=== PATIENT | male | born 1985 | race Caucasian/White ===

== ENCOUNTER 2025-04-02 18:47 | Emergency (ER) | payer SELFPAY ==
--- OUTSIDE RECORDS SUMMARY | 2023-10-30 11:30 | XMS_ITS ---
Author Organization [facility] Am[facility] joseph Billing Info Address [address] [place] [address] Care Team Providers Care Medical Fee Clerk Name Role Phone BLOA GRANT Primary Care Provider REASON FOR VISIT physical exam Encounters Encounter Location Date Provider Diagnosis [id number] [facility] [address] [place], [place] [id number] 10/30/2023 BOLA GRANT Plan Of Treatment No Information Progress Notes * Lars BOWMANOB:1985 (39 yo M)Acc No.[id number]:10/30/2023 PROGRESS NOTE Patient: Casey RODRIGUEZ Provider: Vernon GRANT APRN :1985 A ge:37 Y S ex:Male Date:10/30/2023 C HN#:[id number] Address:[address] , [facility] Subjective: * Chief Complaints: * 1 . Physical exam. * Medical History: Objective: * Vitals: Assessment: Plan: * Treatment: * Care Plan Details* * This progress note has not b een verified nor is it considered complete until locked and signed by the provider. Sign off status: Pending * Provider: Vernon GRANT APRN Date: 10/30/2023 Generated for Derrick proctor/Angelita/eTeitansmitting on: 04/02/2025 07:35 PM EDT
--- OUTSIDE RECORDS SUMMARY | 2023-11-19 11:00 | XMS_ITS ---
Author Organization [facility] Amirk joseph Billing Info Address [address] [place] [address] Care Team Providers Care Rig Welder Name Role Phone BOLA GRANT Primary Care Provider Allergies No Known Allergies REASON FOR VISIT physical exam Medications Medication SIG (Take, Route, Frequency, Duration) Notes Start Date End Date Status Atorvastatin Calcium 10 MG 1 tablet Oral ly Once a day for 90 day(s) Active Fluticasone Propionate 50 MCG/ACT 1 spray in each nostril Nasally Once a day for 30 day(s) 10/07/2018 Active Amitriptyline HCl 10 MG 1 tablet at bedt yoandy Orally Once a day for 30 day(s) Active Nexium 20 MG 1 capsule Orally Daily Active Ketoconazole 2 % as directed External ly Once a day for 3 days, then 3 times a week for 1 month 10/22/2018 Active Tadalafil 10 MG 1 tablet as needed Orally Once a day Active Social History Tobacco Use: Social History Observation Description Date Details (start date - stop date) Former Smoker NA - NA Tobacco Status: Question Answer Notes Patient is a former smoker Vital Signs Height 62 in 11/19/2023 Weight 172 lbs 11/19/2023 BMI 31.46 kg/m2 11/19/2023 Blood pressure systolic 116 mm Hg 11/19/19 24 Blood pressure diastolic 72 mm Hg 024 Temperature 98.1 degrees Fahrenheit 11/19/19 24 Heart Rate 61 /min 11/19/2023 Oximetry 97 11/19/2023 Procedures Procedure Date Ordered Date Performed Result Body Sit e EAR WAX REMOVAL, IRRIGATION (96746) IH 11/19/2023 11/23/19 24 N/A Encounters Encounter Location Date Provider Diagnosis [id number] [facility] [address] [place], [place] [id number] 11/19/2023 BOLA GRANT Obesity (BMI 30-39.9 ) E66.9 ; Well adult exam Z00.00 ; Dietary counseling and surveillance Z71.3 ; Gastroesophageal reflux disease, esophagitis presence not specified K21.9 ; Sick sinus syndrome I49.5 ; Elevated LDL cholesterol level E78.00 and Bilateral impacted cerumen H61.23 Assessments Encounter Date Diagnosis (ICD Code) Assessment Notes Treatment Notes Treatment Clinical Notes Section Notes 11/19/2023 Obesity (BMI 30-39.9) (ICD-10 - E66.9) Encouraged balance nutrition and regular exercise. 11/19/2023 Well adult exam (ICD-10 - Z00.00) Patient advised a healthy life style with a diet that includes vegetables and fruits, grains, healthy proteins in moderation. Patient advised to consume healthy fats like avocados, nuts and olive oil. Avoid fried foods and foods rich in saturated fats. Maintain hydration with water instead of fluids rich in sugar. 11/19/2023 Dietary counseling and surveillance (ICD-10 - Z71.3) Encouraged balance nutrition and regular exercise. 11/19/2023 Gastroesophageal reflux disease, esophagitis presence not specified (ICD-10 - K21.9) 11/19/2023 Sick sinus syndrome (ICD-10 - I49.5) Stable, Stable- follow up with cardiology 11/19/2023 Elevated LDL cholesterol level (ICD-10 - E78.00) F/U in 6 weeks for repeat blood work, discussion of the following: importance of cholesterol control, life style modification, diet modification, the necessity of using medication to control cholesterol, importance of medical compliance, medication side effects, and how to deal with med side effects. Diet increase soluble fiber, Oat bran, nuts, armando, fruits, vegetables, reduce saturated fats and increase omega 3 fatty acids-flaxseed, walnuts. Avoid grapefruit juice. Contact office if you experieince myalgias 11/19/2023 Bilateral impacted cerumen (ICD-10 - H61.23) 11/19/2023 Other A Healthy Lifestyle: Care Instructions material was printed, Body Mass Index: Care Instructions material was printed, High Blood Pressure: Care Instructions material was printed Plan Of Treatment Medication Medication Name Sig Start Date Stop Date Notes Atorvastatin Calcium 10 MG 1 tablet Oral ly Once a day for 90 day(s) Treatment Notes Assessment Notes Obesity (BMI 30-39.9) Encouraged balance nutrition and regular exercise. Well adult exam Patient advised a he althy life style with a diet that includes vegetables and fruits, grains, healthy proteins in moderation. Patient advised to consume healthy fats like avocados, nuts and olive oil. Avoid fried foods and foods rich in saturated fats. Maintain hydration with water instead of fluids rich in sugar. Dietary counseling and surveillance Enco uraged balance nutrition and regular exercise. Sick sinus syndrome Stable, Stable- foll ow up with cardiology Elevated LDL cholesterol level F/U in 6 weeks for repeat blood work, discussion of the following: importance of cholesterol control, life style modification, diet modification, the necessity of using medication to control cholesterol, importance of medical compliance, medication side effects, and how to deal with med side effects. Diet increase soluble fiber, Oat bran, nuts, armando, fruits, vegetables, reduce saturated fats and increase omega 3 fatty acids-flaxseed, walnuts. Avoid grapefruit juice. Contact office if you experieince myalgias Other A Healthy Lifestyle: Care Instructions material was printed, Body Mass Index: Care Instructions material was printed, High Blood Pressure: Care Instructions material was printed Future Test Test Name Order Date HEPATIC FUNCTION PANEL ([id number]) 024 LIPID PANEL, STANDARD (Q-7600) 4 Next Appt Details Follow Up: 6 Months, Reason: Progress Notes * Lars BOWMANOB:1985 (38 yo M)Acc No.[id number]:11/19/2023 PROGRESS NOTE Patient: Casey RODRIGUEZ Provider: Vernon GRANT APRN :1985 A ge:38 Y S ex:Male Date:11/19/2023 Silvana DURAN#:[id number] Address:[address] [id number] Subjective: * Chief Complaints: * P hysical exam * HPI: D epression Screening: PHQ-2 (2015 Edition) L ittle interest or pleasure in doing things??Not at all F eeling down, depressed, or hopeless? N ot at all T otal Score 0 F irst Point of Contact Screening: Do any of the following apply to you? N ew rash or open sores N o F ever and/or chills in the past 7 days N o C ough N o M uscle or body aches (other than from an injury) N o S ore throat N o I n the past 3 weeks, have you or a close contact traveled outside the [place] and you are now ill? N o P atient History: Pt presents today for a lab review & well adult exam, hx sick sinus syndrome-s/p pacer, follows Dr Castillo- has appt tomorrow, follows yearly. Saw GI had colonoscopy & EGD reports- 2019-no polyps- q 10 year, EGD was good. Follows yearly- uses amitriptaline with relief. Has been using Nexium with relief. Saw urology has a cystoscopy- negative results, he still has persistant bladder pain/pressrue- has been see by urology for this, per pt chronic prostatitis. Bilateral ceruman impcation. Has no current dishroom attendant, gu, gi, cv, or ms concerns. * ROS: G eneral ROS: Constitutional: N egative for:, fatigue, fever, loss of appetite, weight change. H EENT: N egative for:, Eye:, visual changes, Ear:, hearing loss, Throat:, trouble swallowing, headache. R padmaja/Pulmonology: N egative for:, chest tightness, cough, shortness of breath. C ardiology: N egative for:, chest pain with exertion, leg swelling, palpitations. G astroenterology: N egative for:, abdominal pain, appetite change, blood in stool, constipation, diarrhea, nausea, vomiting. G enital/Urinary: N egative for:, blood in urine, dysuria, frequency, urgency. M usculoskeletal: N egative for:, weakness, injury, joint pain, joint redness, muscle pain. N eurology: N egative for:, confusion, memory changes, loss of coordination, syncope, sleep problems. P sychology: N egative for:, anxiety, depression, suicidal thoughts, homicidal thoughts. H em/Lymph: N egative for: bleeding, bruising, enlarged lymph nodes. * Medical History: * Surgical History: a ppendix 2009 * Hospitalization/Major Diagno stic Procedure: [facility]brady[facility]-stom[facility] issues, dizziness 11/2020 * Family History: M other: alive, diagnosed with HTN. F ather: alive. S ister(s): alive. B rother(s): alive. D aughter(s): alive. S on(s): alive. S ibling(s): alive. 2 brother(s) , 1 sister(s) . 1 son(s) , 1 daughter(s) . . no family hx of colon/prostate cancer. * Social History: A lcohol Use Patient d oes not use alcohol T obacco Status Patient is a former smoker number of years 2 packs per day 0 .5 E xercise: occasional. M arital Status: . L yobani with: spouse. C ommunication Needs Do you need glasses or contacts to read brochures? N o S ocial Determinants of Health (SDoH) 1) Are you worried or concerned that in the next two months you may not have stable housing that you own, rent, or stay in as a part of a household? N o 3) Within the past 12 months, you worried that your food would run out before you got money to buy more. N ever true 5) Do you put off or neglect going to the doctor because of distance or transportation? N o H ealth Literacy Are medication labels often written in a way that is easy to read and understand? Y es Do you have problems completing medical forms because of difficulty understanding the instructions? N o H igh Risk for Sexually Acquired Diseases including HIV At Risk: N o I llicit Drug Use Patient/Family reports: N o illicit drug use C oncerns Social Concerns: N o Financial Concerns: N o L iving Environment Reported as: H ouse/Condo/Apartment A mbulatory Status : i s independent C affeine: coffee. D rugs: none. E nvironmental Exposure: Negative for. D iet: regular. 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 * Medications: T akingAmitriptyline HCl 10 MG Tablet 1 tablet at bedtime Orally Once a day Fluticasone Propionate 50 MCG/ACT Suspension 1 spray in each nostril Nasally Once a day Ketoconazole 2 % Shampoo as directed Externally Once a day for 3 days, then 3 times a week Nexium 20 MG Capsule Delayed Release 1 capsule Orally Daily Tadalafil 10 MG Tablet 1 tablet as needed Orally Once a day Medication List reviewed and reconciled with the patientTaking Amitriptyline HCl 10 MG Tablet 1 tablet at bedtime Orally Once a day Taking Fluticasone Propionate 50 MCG/ACT Suspension 1 spray in each nostril Nasally Once a day Taking Ketoconazole 2 % Shampoo as directed Externally Once a day for 3 days, then 3 times a week Taking Nexium 20 MG Capsule Delayed Release 1 capsule Orally Daily Taking Tadalafil 10 MG Tablet 1 tablet as needed Orally Once a day Medication List reviewed and reconciled with the patient * Allergies: N .K.A.no[Allergies Verified] Objective: * Vitals: H t: 62 in, Ht-cm: 157.48 cm, Wt: 172 lbs, Wt-k.02 kg, BMI:31.46, Weight Change: 6.4 lbs, Body Surface Area: 1.85, BP:116/72, Temp:98.1F, HR:61, Oxygen sat %:97, Pain scale: 0. * Examination: G eneral Examination: Constitutional: a lert and oriented, person , place , time , well hydrated, NAD, well developed and well nourished. Derm/Integumentary: n ormal, no rash, good turgor, moist, warm. HEENT: H EAD:, normocephalic, EARS:, hearing is grossly normal, tympanic membranes pearly bilaterally, EYES:, eyes normal, EOMI bilaterally, PERRL, no conjunctival erythema, no discharge. NOSE:, nose clear, nares patent, turbinates normal, THROAT:, pharynx and tonsils normal. Neck: s upple, no thyromegaly, no lymphadenopathy, no carotid bruit, JVD flat, normal flexion, normal extension, normal rotation to right, normal rotation to left. Respiratory: c lear to auscultation bilaterally, no wheezes/rhonchi/rales, no chest wall tenderness. Heart: R RR, no murmurs, click or rubs. Gastrointestinal: s oft, NT/ND, BS present, not tender, non-distended. Neurology: C N's II-XII grossly intact, DTRs 1-2+ in all 4 extremities, gait normal. Psych: g ood eye contact, appropriate mood and affect .? Hem/Lymph: N o palpable adenopathy. Extremities: n ormal ROM, no edema, pulses 2 plus bilaterally. Assessment: * Assessment: 1. W ell adult exam - Z00.00 (Primary) 2 . O besity (BMI 30-39.9) - E66.9 3 . D ietary counseling and surveillance - Z71.3 4 . G astroesophageal reflux disease, esophagitis presence not specified - K21.9 5 . S ick sinus syndrome - I49.5 6 . E levated LDL cholesterol level - E78.00 7 . B ilateral impacted cerumen - H61.23 Plan: * Treatment: 2. O besity (BMI 30-39.9) L AB: LIPID PANEL, STANDARD (Q-7600) (Ordered for 12/31/2023) L AB: HEPATIC FUNCTION PANEL (Q-08998) (Ordered for 12/31/2023) Notes: Encouraged balance nutrition and regular exercise. 3. D ietary counseling and surveillance L AB: LIPID PANEL, STANDARD (Q-7600) (Ordered for 12/31/2023) L AB: HEPATIC FUNCTION PANEL (Q-25966) (Ordered for 12/31/2023) Notes: Encouraged balance nutrition and regular exercise. 4. G astroesophageal reflux disease, esophagitis presence not specified L AB: LIPID PANEL, STANDARD (Q-7600) (Ordered for 12/31/2023) L AB: HEPATIC FUNCTION PANEL (Q-72447) (Ordered for 12/31/2023) 5. S ick sinus syndrome L AB: LIPID PANEL, STANDARD (Q-7600) (Ordered for 12/31/2023) L AB: HEPATIC FUNCTION PANEL (Q-77113) (Ordered for 12/31/2023) Notes: Stable, Stable- follow up with cardiology 6. E levated LDL cholesterol level Start Atorvastatin Calcium Tablet, 10 MG, 1 tablet, Orally, Once a day, 90 day(s), 90 Tablet, Refills 1. L AB: LIPID PANEL, STANDARD (Q-7600) (Ordered for 12/31/2023) L AB: HEPATIC FUNCTION PANEL (Q-33742) (Ordered for 12/31/2023) Notes: F/U in 6 weeks for repeat blood work, discussion of the following: importance of cholesterol control, life style modification, diet modification, the necessity of using medication to control cholesterol, importance of medical compliance, medication side effects, and how to deal with med side effects. Diet increase soluble fiber, Oat bran, nuts, armando, fruits, vegetables, reduce saturated fats and increase omega 3 fatty acids-flaxseed, walnuts. Avoid grapefruit juice. Contact office if you experieince myalgias 7. B ilateral impacted cerumen L AB: LIPID PANEL, STANDARD (Q-7600) (Ordered for 12/31/2023) L AB: HEPATIC FUNCTION PANEL (Q-11433) (Ordered for 12/31/2023) P rocedure: EAR WAX REMOVAL, IRRIGATION (81337) IH (Performed Date - 11/23/2023) 8. O thers Notes: A Healthy Lifestyle: Care Instructions material was printed, Body Mass Index: Care Instructions material was printed, High Blood Pressure: Care Instructions material was printed * Procedure Codes: 1 159F MED LIST DOCD IN [id number] RVW MEDS BY RX/DR IN [id number] DIAST BP <80 MM [id number] SYST BP LT 130 MM [id number] PT SCRN TBCO ID NON [id number] REMOVE IMPACTED EAR WAX UNI * Preventive Medicine: [place] PAF (Patient Assessment Form): PRO Estevez 11/19/2023 02:58:10 PM EDT >. F all Risk Assessment Date Screening Completed: 0 11/19/2023 Increased Fall Risk factors: N o fall risk factors History Falls in Past Year: N o falls in the past year A positive response is considered at risk. Addressed: P atient education D epression Screening PHQ 2 Smart Form: C ompleted I mmunizations Influenza Immunization Exempt E xempt Patient Reason Exempt: Patient Reason D rug declined by patient Quality Measures: H igh Blood Pressure screening and follow up: Intervention Order N o W eight Assessment Above Normal BMI Follow-Up L ifestyle education regarding diet Above Normal BMI Follow-Up L ifestyle education regarding diet * Follow Up: 6 Months * Care Plan Details* * Sign off status: Completed true * Provider: Vernon GRANT APRN Date: 0 11/19/2023 Generated for Derrick proctor/Angelita/Ariane on: 0 04/02/2025 07:35 PM EDT History and Physical Notes * HPI (History of Present Illness) Category Sub-Category Detail Notes Category Not es Depression Screening PHQ-2 (2015 Edition) Little interest or pleasure in doing things?: Not at all Feeling down, depressed, or hopeless?: N ot at all Total Score: 0 Patient History Pt presents today for a lab review & well adult exam, hx sick sinus syndrome-s/p pacer, follows Dr Castillo- has appt tomorrow, follows yearly. Saw GI had colonoscopy & EGD reports- 2019-no polyps- q 10 year, EGD was good. Follows yearly- uses amitriptaline with relief. Has been using Nexium with relief. Saw urology has a cystoscopy- negative results, he still has persistant bladder pain/pressrue- has been see by urology for this, per pt chronic prostatitis. Bilateral ceruman impcation. Has no current dishroom attendant, gu, gi, cv, or ms concerns. First Point of Contact Screening Do any of the following apply to you? New rash or open sores: No Fever and/or chills in the past 7 days: No Cough: No Muscle or body aches (other than from an injury): No Sore throat: No In the past 3 weeks, have yo u or a close contact traveled outside the [place] and you are now ill? : No Examination Category Sub-Category Detail Notes Category Not es General Examination HEENT: HEAD:, normo cephalic, EARS:, hearing is grossly normal, tympanic membranes pearly bilaterally, EYES:, eyes normal, EOMI bilaterally, PERRL, no conjunctival erythema, no discharge. NOSE:, nose clear, nares patent, turbinates normal, THROAT:, pharynx and tonsils normal Neck: supple, no thyromega ly, no lymphadenopathy, no carotid bruit, JVD flat, normal flexion, normal extension, normal rotation to right, normal rotation to left Heart: RRR, no murmurs, cli ck or rubs Respiratory: clear to auscultatio n bilaterally, no wheezes/rhonchi/rales, no chest wall tenderness Gastrointestinal: soft, NT/ND, BS pres ent, not tender, non-distended Extremities: normal ROM, no edema , pulses 2 plus bilaterally Constitutional: alert and oriented, person , place , time , well hydrated, NAD, well developed and well nourished Derm/Integumentary: normal, no rash, goo d turgor, moist, warm Neurology: CN's II-XII grossly intact, DTRs 1-2+ in all 4 extremities, gait normal Hem/Lymph: No palpable adenopat hy Psych: good eye contact, ap propriate mood and affect
--- OUTSIDE RECORDS SUMMARY | 2023-11-23 10:11 | XMS_ITS ---
Author Organization [facility] Amrik joseph Billing Info Address [address] [place], [place] [address] Care Team Providers Care Public Health Dietitian Name Role Phone BOLA GRANT Primary Care Provider REASON FOR VISIT Medication Medications Medication SIG (Take, Route, Frequency, Duration) Notes Start Date End Date Status Atorvastatin Calcium 10 MG 1 tablet Oral ly Once a day for 90 day(s) Active Encounters Encounter Location Date Provider Diagnosis [id number] [facility] [address] [place], [place] [id number] 11/23/2023 BOLA GRANT Elevated LDL cholesterol level E78.00 Assessments Encounter Date Diagnosis (ICD Code) Assessment Notes Treatment Notes Treatment Clinical Notes Section Notes 11/23/2023 Elevated LDL cholesterol level (ICD-10 - E78.00) Plan Of Treatment Medication Medication Name Sig Start Date Stop Date Notes Atorvastatin Calcium 10 MG 1 tablet Oral ly Once a day for 90 day(s) Progress Notes * Fidel BOWMANReddOB:1985 (38 yo M)Acc No.[id number]:11/23/2023 Patient: Casey RODRIGUEZ :1985 A ge:38 Y S ex:Male Address:[address] , [place], [address] * Refills Refill Atorvastatin Calcium Tablet, 10 MG, Orally, 90 Tablet, 1 tablet, Once a day, 90 day(s), Refills=1 * true * Date: Generated for Printi ng/Faxing/eTransmitting on: 0 04/02/2025 07:35 PM EDT
--- OUTSIDE RECORDS SUMMARY | 2023-11-27 12:30 | XMS_ITS ---
Author Organization [facility] Am[facility] joseph Billing Info Address [address] [place], [place] [address] Care Team Providers Care Insurance Customer Service Specialist Name Role Phone BOLA GRANT Primary Care Provider REASON FOR VISIT 1 wk f/u Encounters Encounter Location Date Provider Diagnosis [id number] [facility] [address] [place], [place] [id number] 11/27/2023 BOLA GRANT Plan Of Treatment No Information Progress Notes * GRACIEFidel ReneeReddOB:1985 (39 yo M)Acc No.[id number]:11/27/2023 PROGRESS NOTE Patient: Casey RODRIGUEZ Provider: Vernon GRANT APRN :1985 A ge:38 Y S ex:Male Date:11/27/2023 C HN#:[id number] Address:[address] [facility] Subjective: * Chief Complaints: * 1 . 1 wk f/u. * Medical History: Objective: * Vitals: Assessment: Plan: * Treatment: * Care Plan Details* * This progress note has not b een verified nor is it considered complete until locked and signed by the provider. Sign off status: Pending * Provider: Vernon GRANT APRN Date: 11/27/2023 Generated for Derrick proctor/Angelita/eTransmitting on: 04/02/2025 07:37 PM EDT
--- OUTSIDE RECORDS SUMMARY | 2023-12-03 10:15 | XMS_ITS ---
Author Organization [facility] Am[facility]oseph Billing Info Address [address] [place], [place] [address] Care Team Providers Care Float Nurse Name Role Phone BOLA GRANT Primary Care Provider REASON FOR VISIT 2 wk f/u Encounters Encounter Location Date Provider Diagnosis [id number] [facility] [address] [place], [place] [id number] 12/03/2023 BOLA GRANT Assessments Encounter Date Diagnosis (ICD Code) Assessment Notes Treatment Notes Treatment Clinical Notes Section Notes 12/03/2023 Other A Healthy Lifestyle: Care Instructions material was printed, Body Mass Index: Care Instructions material was printed, High Blood Pressure: Care Instructions material was printed Plan Of Treatment Treatment Notes Assessment Notes Other A Healthy Lifestyle: Care Instructions material was printed, Body Mass Index: Care Instructions material was printed, High Blood Pressure: Care Instructions material was printed Progress Notes * Lars BOWMANOB:1985 (39 yo M)Acc No.[id number]:12/03/2023 PROGRESS NOTE Patient: Casey RODRIGUEZ Provider: Vernon GRANT APRN :1985 A ge:38 Y S ex:Male Date:12/03/2023 C HN#:[id number] [place] [place] Subjective: * Chief Complaints: * 1 . 2 wk f/u. * HPI: F irst Point of Contact Screening: Do [...] and you are now ill? N o * Medical History: Objective: * Vitals: Assessment: Plan: * Treatment: * Preventive Medicine: [place] PAF (Patient Assessment Form): Vernon Junior PRO LOUIS 11/19/2023 02:58:10 PM EDT >. F all [...] Follow-Up L ifestyle education regarding diet * Care Plan Details* * This progress note has not b een verified nor is it considered complete until locked and signed by the provider. Sign off status: Pending * Provider: Vernon GRANT, RESIDENTIAL APPLIANCE REPAIR TECHNICIAN Date: 0 12/03/2023 Generated for Derrick proctor/Angelita/Ariane on: 0 04/02/2025 07:37 PM EDT History and Physical Notes * HPI (History of Present Illness) Category Sub-Category Detail Notes Category Not es First Point of Contact Screening Do any [...] [place] and you are now ill? : No
[2025-04-02] VITALS (16 sets, daily range): BP systolic 121–163; BP diastolic 71–101; PULSE 59–62; RESP 16; TEMP 36.7; O2SAT 95–100; BMI 21.7
--- NOTE | 2025-04-02 19:30 | ED_ITS ---
Discharge Plan Disposition Patient Disposition: Home, Self-Care Condition: Good Prescriptions Prescriptions: New cefpodoxime 200 mg tablet 200 mg PO BID 7 Days Qty: 14 0RF Rx Instructions: must administer with a meal/food Referrals Follow up/Referrals: Provider,Referral, [Primary Care Provider, Medical] - See instructions Activity Restrictions/Add. Instructions Additional Instructions/Restrictions: Take the take the antibiotics as prescribed. Return to the emergency department for any acute or worsening symptoms. Clinical Impressions Clinical Impression: UTI (urinary tract infection) Instructions Patient Instructions: Acute Cystitis Print Language Print Language: Chinese Discharge ED Provider: Alda Ledbetter General Adult HPI General Chief complaint: PAIN Stated complaint: pain in groin Time Seen by Provider: 04/02/25 19:30 History of Present Illness HPI narrative: Patient is an otherwise healthy 39-year-old male who presented to the emergency department with dysuria. Patient states that it feels like his penis is on fire. That they recently broke using [place] and the symptoms started 2 days ago slowly gotten worse. Patient states that he has significant discomfort when he tries to urinate. Patient states that he has been able to fully urinate though. Patient denies any fevers nausea vomiting. Patient denies any abdominal pain. Patient denies any headaches vision changes chest pain shortness of breath. Patient states that this has never happened to him before. Patient denies any penile discharge or lesions. Patient denies any prior abdominal surgeries. Patient denies any history of kidney stones. Related Data Previous Rx's ?Medication ?Instructions ?Recorded cefpodoxime 200 mg tablet 200 mg PO BID 7 days #14 tab s 04/02/25 Allergies Allergy/AdvReac Type Severity Reaction Status Date / Time No Known Allergies Allergy Verified 04/02/25 19:44 [facility] Disclaimer: The information contained in this section may have been updated after the patient was seen, as this information can be updated by other users. Medical History (Updated 04/02/25 @ 23:02 by Alda Ledbetter DO) Pacemaker GERD (gastroesophageal reflux disease) Hyperlipidemia Surgical History (Updated 04/02/25 @ 19:46 by Jazmín Mcdonald RN) Hx of appendectomy Social History Smoking Status: Never smoker alcohol intake: never current occupational status: other Travel in the last 8 weeks?: None ROS Obtained: Yes All systems reviewed & no additional complaints except as documented and Yes Systems reviewed as appropriate & no additional complaints except as documented Physical Exam General General appearance: alert, in no apparent distress and other (Appears uncomfortable) Head Head exam: atraumatic, normocephalic and normal inspection Eye Eye exam: Present normal appearance, PERRL and EOMI; Absent scleral icterus ENT ENT exam: Present normal exam and normal external ear exam Neck Neck exam: Present normal inspection and full ROM Chest Chest inspection: Present normal inspection and symmetric chest wall rise Respiratory Respiratory exam: Present normal lung sounds bilaterally; Absent respiratory distress or wheezes Cardiovascular Cardiovascular exam: Present regular rate, normal rhythm and normal heart sounds Abdominal Exam Abdominal exam: Present soft and distention; Absent tenderness, guarding or rebound exam: Present normal inspection, normal testicular lie and circumcised; Absent testicular tenderness, urethral discharge or scrotal swelling Extremities Exam Extremities exam: Present normal inspection and full ROM Back Exam Back exam: Present normal inspection and full ROM Neurological Exam Neurological exam: Present alert and oriented X3 Psychiatric Psychiatric exam: Present normal affect and normal mood Skin Skin exam: Present warm and dry Medical Decision Making Medical Records Medical records reviewed: Yes I reviewed the patient's medical records. Screening: Per USPSTF and CDC recommendations, given the prevalence of disease in our region, it is our hospital?s policy to screen for HIV and viral Hepatitis for all patients aged 18 and over and those with ongoing risk factors. Miguel Inquiry Pt receiving controlled substance: No Vital Signs: 04/02/25 19:39 04/02/25 20:00 04/02/25 20:30 Temperature 98.0 F Temperature Source Oral Pulse Rate 61 59 L Pulse Rate [Left] 62 Respiratory Rate 16 Blood Pressure 147/97 H 153/88 H Blood Pressure [Right Arm] 163/101 H Blood Pressure Mean 121 126 Blood Pressure Mean [Right Arm] 121 Blood Pressure Source Blood Pressure Source [Right Arm] Automatic Cuff Blood Pressure Position Blood Pressure Position [Right Arm] Sitting 02 Sat by Pulse Oximetry 100 99 99 Oxygen Delivery Method Room Air 04/02/25 20:42 04/02/25 20:45 04/02/25 21:00 Temperature Temperature Source Pulse Rate 60 60 60 Pulse Rate [Left] Respiratory Rate Blood Pressure Blood Pressure [Right Arm] Blood Pressure Mean Blood Pressure Mean [Right Arm] Blood Pressure Source Blood Pressure Source [Right Arm] Blood Pressure Position Blood Pressure Position [Right Arm] 02 Sat by Pulse Oximetry 98 99 97 Oxygen Delivery Method 04/02/25 21:00 04/02/25 21:15 04/02/25 21:30 Temperature Temperature Source Pulse Rate 60 Pulse Rate [Left] Respiratory Rate Blood Pressure 134/85 134/72 Blood Pressure [Right Arm] Blood Pressure Mean 101 92 Blood Pressure Mean [Right Arm] Blood Pressure Source Blood Pressure Source [Right Arm] Blood Pressure Position Blood Pressure Position [Right Arm] 02 Sat by Pulse Oximetry 97 Oxygen Delivery Method 04/02/25 21:30 04/02/25 21:45 04/02/25 22:00 Temperature Temperature Source Pulse Rate 60 60 60 Pulse Rate [Left] Respiratory Rate Blood Pressure Blood Pressure [Right Arm] Blood Pressure Mean Blood Pressure Mean [Right Arm] Blood Pressure Source Blood Pressure Source [Right Arm] Blood Pressure Position Blood Pressure Position [Right Arm] 02 Sat by Pulse Oximetry 95 96 96 Oxygen Delivery Method 04/02/25 22:01 04/02/25 22:01 04/02/25 22:15 Temperature Temperature Source Pulse Rate 60 60 Pulse Rate [Left] Respiratory Rate Blood Pressure 121/71 Blood Pressure [Right Arm] Blood Pressure Mean 95 Blood Pressure Mean [Right Arm] Blood Pressure Source Blood Pressure Source [Right Arm] Blood Pressure Position Blood Pressure Position [Right Arm] 02 Sat by Pulse Oximetry 96 96 Oxygen Delivery Method 04/02/25 22:30 04/02/25 22:45 04/02/25 23:00 Temperature Temperature Source Pulse Rate 60 60 60 Pulse Rate [Left] Respiratory Rate Blood Pressure Blood Pressure [Right Arm] Blood Pressure Mean Blood Pressure Mean [Right Arm] Blood Pressure Source Blood Pressure Source [Right Arm] Blood Pressure Position Blood Pressure Position [Right Arm] 02 Sat by Pulse Oximetry 96 97 96 Oxygen Delivery Method 04/02/25 23:00 04/02/25 23:12 Temperature 98.0 F Temperature Source Pulse Rate 60 Pulse Rate [Left] Respiratory Rate 16 Blood Pressure 123/78 123/78 Blood Pressure [Right Arm] Blood Pressure Mean 92 Blood Pressure Mean [Right Arm] Blood Pressure Source Automatic Cuff Blood Pressure Source [Right Arm] Blood Pressure Position Sitting Blood Pressure Position [Right Arm] 02 Sat by Pulse Oximetry Oxygen Delivery Method Room Air Lab Data Lab results reviewed: Yes I reviewed the patient's lab results. Lab Results 04/02/25 19:48: Urine Color Yellow, Urine Appearance Clear, Urine pH 5.5, Ur Specific [place] 1.015, Urine Protein Trace, Urine Glucose (UA) Negative, Urine Ketones Negative, Urine Blood Negative, Urine Nitrate Positive A, Urine Bilirubin 1+ A, Urine Urobilinogen 2.0, Ur Leukocyte Esterase Negative, Urine RBC None, Urine WBC Occasional, Ur Squamous Epith Cells None, Urine Bacteria Trace 04/02/25 20:50: WBC 8.4, RBC 4.43 L, Hgb 14.7, Hct 41.8 L, MCV 94.4 H, MCH 33.2 H, MCHC 35.2, RDW 12.4, Plt Count 241, MPV 9.9, Neut % (Auto) 55.7, Lymph % (Auto) 32.3, [place] % (Auto) 10.4 H, Eos % (Auto) 0.8, Baso % (Auto) 0.6, Neut # (Auto) 4.6, Lymph # (Auto) 2.7, [place] # (Auto) 0.9, Eos # (Auto) 0.1, Baso # (Auto) 0.1, Sodium 139, Potassium 4.1, Chloride 101, Carbon Dioxide 32 H, Anion Gap 10.1, BUN 13, Creatinine 0.90, Estimated Creat Clear 114, Estimated GFR 93, Est GFR ( Amer) 113, Glucose 104 H, Calcium 9.5, Total Bilirubin 0.5, AST 30, ALT 17, Alkaline Phosphatase 71, Total Protein 7.6, Albumin 4.5, Globulin 3.1, Albumin/Globulin Ratio 1.5, Lipase 26, HCV Ab JUNITO w/Rflx PCR Qn Negative, HIV Ag/Ab Combo Qual Negative 04/02/25 20:50 04/02/25 20:50 Orders (Tests/Meds): ED MEDICATIONS Discontinued Medications Generic Name Dose Route Start Last Admin Trade Name Freq PRN Reason Stop Dose Admin Acetaminophen 1,000 mg 04/02/25 20:30 04/02/25 20:41 Acetaminophen 500mg Tab PO 04/02/25 20:31 1,000 mg ONCE ONE Administration Azithromycin 1,000 mg 04/02/25 20:23 04/02/25 20:42 Azithromycin 250mg Tablet PO 04/02/25 20:24 1,000 mg ONCE ONE Administration Ceftriaxone Sodium 2 gm/ 100 mls @ 200 mls/hr 04/02/25 20:30 04/02/25 21:31 Sodium Chloride IV 04/12/25 20:29 Infused Q24H MACHELLE Infusion Ibuprofen 800 mg 04/02/25 20:30 04/02/25 20:41 Ibuprofen 400 Mg Tablet PO 04/02/25 20:31 800 mg ONCE ONE Administration Ondansetron HCl 4 mg 04/02/25 20:57 04/02/25 20:58 Ondansetron 4mg/2ml Vial IV 04/02/25 20:58 4 mg ONCE ONE Administration Oxycodone HCl 5 mg 04/02/25 20:31 04/02/25 20:41 Oxycodone 5mg Immediate Release Tablet PO 04/02/25 20:32 5 mg ONCE ONE Administration Tamsulosin HCl 0.4 mg 04/02/25 21:00 04/02/25 19:59 Tamsulosin 0.4mg Capsule PO 05/02/25 20:59 0.4 mg HS MACHELLE Administration ORDERS Category Date Time Status CT abdomen pelvis wo con Stat Cat Scan 04/02/25 20:30 Completed CBC w/Auto Diff [Complete Blood Count Auto Diff] Stat Lab 04/02/25 20:50 Completed CMP [Comprehensive Metabolic Panel] Stat Lab 04/02/25 20:50 Completed HIV Combo Stat Lab 04/02/25 20:50 Completed Hepatitis C Ab Qual. W/ RFX Stat Lab 04/02/25 20:50 Completed Lipase Stat Lab 04/02/25 20:50 Completed UA [Urinalysis and Microscopic] Stat Lab 04/02/25 19:48 Completed Urine Chlam/Gono/Trich ([facility]) Routine Lab 04/02/25 19:48 Received Urine Culture Stat Micro 04/02/25 19:48 Received Medical Decision Narrative: Patient is a 39-year-old male who presented to the emergency department with dysuria. On arrival, patient was hemodynamically stable with unremarkable vital signs. Differential included but not limited to: Urinary tract infection, nephrolithiasis, STD, bladder spasms, amongst others. Labs were reviewed and interpreted by myself: CBC showed no leukocytosis, hemoglobin is stable. CMP was unremarkable. Patient was UA had trace bacteria, occasional white blood cells and nitrate positive however patient did take Azo prior to arrival therefore could be falsely nitrite positive. CT scan was reviewed and interpreted by myself and showed no acute intra- abdominal pathology. Patient was treated symptomatically in the emergency department. Given patient's significant discomfort and inability to tell whether patient is nitrite positive secondary to Azo or due to true infection patient was given a dose of Rocephin in the emergency department and patient was sent with antibiotics. Patient was treated empirically for sexually transmitted infections. Patient was otherwise discharged stable condition, return precautions were discussed. Critical Care Critical Care Time Critical Care Time: No
--- OUTSIDE RECORDS SUMMARY | 2025-04-02 19:36 | XMS_ITS | Patient Health Record ---
Author Organization [facility]oseph Billing Info Address [address] [place] [id number] Care Team Providers Care Hand Rounder Name Role Phone BOLA GRANT Primary Care Provider Allergies No Known Allergies Reason For Referral No Information Medications Medication SIG (Take, Route, Frequency, Duration) Notes Start Date End Date Status Fluticasone Propionate 50 MCG/ACT 1 spray in each nostril Nasally Once a day for 30 day(s) 10/07/2018 Active Amitriptyline HCl 10 MG 1 tablet at bedt yoandy Orally Once a day for 30 day(s) Active Tadalafil 10 MG 1 tablet as needed Orally Once a day Active Atorvastatin Calcium 10 MG TAKE 1 TABLET BY MOUTH EVERY DAY for 90 Active Nexium 20 MG 1 capsule Orally Daily Active Ketoconazole 2 % as directed External ly Once a day for 3 days, then 3 times a week for 1 month 10/22/2018 Active Social History Tobacco Use: Social History Observation Description Date Details (start date - stop date) Former Smoker NA - NA Tobacco Status: Question Answer Notes Patient is a former smoker Problems Problem Type SNOMED Code ICD Code Onset Dates Problem Status W/U Status Risk Notes Problem 29889397 Sick sinus syndr ome (I49.5) Active confirmed Problem 153007493 BMI 32.0-32.9,ad ult (Z68.32) Active confirmed Problem 22900181 Migraine without status migrainosus, not intractable, unspecified migraine type (G43.909) Active confirmed Problem 996874998 Gastroesophageal reflux disease, esophagitis presence not specified (K21.9) Active confirmed Problem 0981295 Gastritis withou t bleeding, unspecified chronicity, unspecified gastritis type (K29.70) Active confirmed Plan Of Treatment Future Test Test Name Order Date HEPATIC FUNCTION PANEL ([id number]) 024 LIPID PANEL, STANDARD ([id number]) 4 Insurance Providers Payer Name Payer Address Payer Phone Subscriber Number Group Number Insured Name Patient Relationship to Insured Coverage Start Date Coverage End Date [employer] OOS HMO OR PPO [address] [facility] [place] [id number] Latanya Parnell Spouse - patient is the spouse of the insured 3 Medical (General) History Medical History History ICD Code bowel irregularity polyps 2011 endoscopy 2010 pacemaker implant-[facility] Surgical History Surgery Date(Month/Year) appendix 2009 Hospitalization History Reason Date(Month/Year) [facility]-stomach issues, dizziness 11/2020 [facility]-bradycardia 2018
--- OUTSIDE RECORDS SUMMARY | 2025-04-02 19:37 | XMS_ITS | Clinical Summary ---
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 Acti ve famotidine (PEPCID) 20 MG PO Tablet Take 1 tablet by mouth 2 times daily. 60 tablet 11/21/2018 Active Active Problems Problem Noted Date Diagnosed Date Bradycardia 11/25/2018 Lightheadedness 11/25/2018 GERD (gastroesophageal reflux disease) 9 Dysuria 11/25/2018 History of pacemaker 11/23/2018 Family History Medical History Relation Comments Heart Disease Father Relation Status Comments Father Social History Tobacco Use Types Packs/Day Years Used Date Smoking Tobacco: Former Cigarettes 1 6 2 001 - 2007 Smokeless Tobacco: Former Snuff Quit: 2018 Alcohol Use Standard Drinks/Week Comments Not Currently 0 (1 standard drink = 0.6 oz pur e alcohol) Sex and Gender Information Value Date Recorded Sex Assigned at Not on file Legal Sex Male 8:46 AM EDT Gender Identity Not on file Sexual Orientation Not on file Last Filed Vital Signs Vital Sign Reading Time Taken Comments Blood Pressure 125/84 12/04/2018 1:27 AM EDT Pulse 60 12/04/2018 1:27 AM EDT Temperature 36.7 C (98.1 F) 12/04/2018 1:27 AM EDT Respiratory Rate 16 12/04/2018 1:27 AM EDT Oxygen Saturation 99% 12/04/2018 1:27 AM EDT Inhaled Oxygen Concentration - - Weight 67.6 kg (149 lb) 12/03/2018 10:18 PM EDT Height 185.4 cm (6' 1 ) 12/03/2018 10:18 PM EDT Body Mass Index 19.66 12/03/2018 10:18 PM EDT Plan of Treatment Not on file Insurance [facility] HMO/POS [facility] BLUE CARD/OUT OF STATE Care Teams Tree Feller Operator Relationship Specialty Start Date End Date Salnea Arciniega [address] [facility] [place] [address] PCP - General Nurse Practitioner 03/24/23
[2025-04-02 19:55] LABS: Color,Urine YELLOW (Yellow); Glucose,Urine (UA) Negative (Negative); Ketones,Urine Negative (Negative); Leukocyte Esterase,Urine Negative (Negative); Microscopic, Urine URINE MICROSCOPIC (MICROSCOPIC); PH,Urine 5.5 (5.0-8.5); Protein,Urine TRACE (Negative); Specific Gravity, Urine 1.015 (1.005-1.030); Urobilinogen,Urine 2.0 EU/dl (0.2)
[2025-04-02 19:56] LABS: Bilirubin,Urine 1+ (Negative)
[2025-04-02] MEDS: TAMSULOSIN 0.4MG CAPSULE 0.4 MG PO (19:59)
[2025-04-02 20:04] LABS: Bacteria,Urine Trace /lpf
[2025-04-02 20:05] LABS: WBC,Urine Occasional #/hpf (0-3)
--- NOTE | 2025-04-02 20:30 | CT_ITS ---
PROCEDURE INFORMATION: Exam: CT Abdomen And Pelvis Without Contrast Exam date and time: 04/02/2025 8:41 PM Age: 39 years old Clinical indication: Other: R/O kidney stone TECHNIQUE: Imaging protocol: Computed tomography of the abdomen and pelvis without contrast. Radiation optimization: All CT scans at this facility use at least one of these dose optimization techniques: automated exposure control; mA and/or kV adjustment per patient size (includes targeted exams where dose is matched to clinical indication); or iterative reconstruction. COMPARISON: No relevant prior studies available. FINDINGS: Liver: Unremarkable. No mass. Gallbladder and biliary ducts: Unremarkable. No calcified stones. No ductal dilation. Pancreas: Unremarkable. No ductal dilation. Spleen: Unremarkable. No splenomegaly. Adrenal glands: Unremarkable. No mass. Kidneys and ureters: Unremarkable. No nephroureterolithiasis. No hydronephrosis. Stomach and bowel: Nonobstructive pattern. Appendix: Not visualized. Intraperitoneal space: Unremarkable. No free air. No significant fluid collection. Vasculature: Unremarkable. No abdominal aortic aneurysm. Lymph nodes: Unremarkable. No enlarged lymph nodes. Urinary bladder: Unremarkable as visualized. Reproductive: Unremarkable as visualized. Bones/joints: Chronic L5 on S1 anterolisthesis and bilateral pars interarticularis defects. No acute findings. Soft tissues: Unremarkable. IMPRESSION: No acute findings.
[2025-04-02] MEDS: ACETAMINOPHEN 500MG TAB 1000 MG PO (20:41)
[2025-04-02] MEDS: OXYCODONE 5MG IMMEDIATE RELEASE TABLET 5 MG PO (20:41)
[2025-04-02] MEDS: IBUPROFEN 400 MG TABLET 800 MG PO (20:41)
[2025-04-02] MEDS: AZITHROMYCIN 250MG TABLET 1000 MG PO (20:42)
[2025-04-02] MEDS: ONDANSETRON 4MG/2ML VIAL 4 MG IV (20:58)
[2025-04-02 21:01] LABS: Hematocrit 41.8 % (42.0-52.0); Hemoglobin 14.7 g/dL (14.1-18.0); Immature Granulocytes % 0.2 %; Mean Corpuscular HGB Conc 35.2 g/dL (31.8-35.4); Mean Corpuscular Hemoglobin 33.2 pg (27.0-31.2); Mean Corpuscular Volume 94.4 fl (80-94); Nucleated Red Blood Cells % 0 %; Platelet Count 241 K/mm3 (142-424); Red Blood Count 4.43 M/mm3 (4.60-6.20); Red Cell Distribution Width-SD 43.0 fL; White Blood Count 8.4 K/mm3 (4.8-10.8)
[2025-04-02 21:05] LABS: Albumin Level 4.5 g/dl (3.5-5.0); Chloride 101 mmol/L (98-107); Potassium 4.1 mmoL/L (3.5-5.1); Sodium 139 mmol/L (136-145)
[2025-04-02 21:08] LABS: Alanine Aminotransferase 17 U/L (12-78); Albumin/Globulin Ratio 1.5 (1.1-1.8); Alkaline Phosphatase 71 U/L (38-126); Anion Gap 10.1 mEq/L (5-15); Aspartate Amino Transferase 30 U/L (17-59); Bilirubin,Total 0.5 mg/dl (0.2-1.3); Blood Urea Nitrogen 13 mg/dl (9-20); Carbon Dioxide 32 mmol/L (22.0-30.0); Creatinine Clearance Estimated 114 mL/min (50-200); Creatinine,Serum 0.90 mg/dl (0.66-1.25); Estimated Glomerular Filt Rate 93 ml/min (>60); GFR (African American) 113 ML/MIN (>60); Globulin 3.1 g/dL (1.3-3.2); Lipase 26 U/L (23-300); Total Protein,Serum 7.6 g/dl (6.3-8.2)
[2025-04-02 21:09] LABS: Calcium 9.5 mg/dl (8.4-10.2); Glucose 104 mg/dl (74-100)
[2025-04-02 22:11] LABS: Hepatitis C Ab Qual. W/ RFX NEGATIVE (Negative)
--- NOTE | 2025-04-03 09:57 | PC.NURSE ---
[facility] DOES NOT HAVE RX THAT DR ROQUE ORDERED, OK'D PER DR GARCES [facility]
== END 2025-04-02 23:13 | disposition home or self-care (01) ==
PROVIDERS: Emergency Provider Student in an Organized Health Care Education/Training Program
DX: N39.0 Urinary tract infection, site not specified (principal); R30.0 Dysuria
CPT/HCPCS: 51798; 74176; 80053; 81001; 83690; 85025; 86803; 87086; 87389; 87491; 87591; 87661; 96365; 96366; 96375; 99284; J0696; J2405